=== PATIENT | female | born 1965 | race Two or more races ===

== ENCOUNTER → 2019-01-13 | Outpatient (CLI) | payer OTHER | END | disposition home or self-care (01) | LOC: MAMO-SONO 13:15 | DX: N60.19 Diffuse cystic mastopathy of unspecified breast (principal); Z12.31 Encounter for screening mammogram for malignant neoplasm of breast ==

== ENCOUNTER 2020-02-14 09:28 | Outpatient (CLI) | payer OTHER | END 2020-02-14 10:04 | disposition home or self-care (01) | LOC: RAD 09:28 | PROVIDERS: ATTEND General Practice | DX: M85.80 Other specified disorders of bone density and structure, unspecified site (principal); N60.22 Fibroadenosis of left breast; N60.21 Fibroadenosis of right breast ==

== ENCOUNTER 2021-02-28 09:22 | Outpatient (CLI) | payer OTHER | END 2021-02-28 09:38 | disposition home or self-care (01) | LOC: MAMO-SONO 09:22 | PROVIDERS: ATTEND General Practice | DX: N64.59 Other signs and symptoms in breast (principal); N60.22 Fibroadenosis of left breast; E55.9 Vitamin D deficiency, unspecified ==

== ENCOUNTER 2021-10-10 13:23 | Outpatient (CLI) | payer OTHER | END 2021-10-10 13:45 | disposition home or self-care (01) | LOC: SONOGRAMA 13:23 | PROVIDERS: ATTEND General Practice | DX: R31.9 Hematuria, unspecified (principal) ==

== ENCOUNTER 2022-10-14 10:14 | Outpatient (CLI) | payer OTHER | END 2022-10-14 10:20 | disposition home or self-care (01) | LOC: SONOGRAMA 10:14 | PROVIDERS: ATTEND General Practice | DX: N28.1 Cyst of kidney, acquired (principal) ==

== ENCOUNTER 2024-05-31 13:03 | Outpatient (CLI) | payer OTHER | END 2024-05-31 13:09 | disposition home or self-care (01) | LOC: NUCLEAR 13:03 | PROVIDERS: ATTEND General Practice | DX: Z13.820 Encounter for screening for osteoporosis (principal); M81.0 Age-related osteoporosis without current pathological fracture ==

== ENCOUNTER 2024-12-29 13:20 | Outpatient (CLI) | payer OTHER | END 2024-12-29 13:25 | disposition home or self-care (01) | LOC: MAMO-SONO 13:20 | PROVIDERS: ATTEND General Practice | DX: N60.01 Solitary cyst of right breast (principal); N60.02 Solitary cyst of left breast ==